=== PATIENT | female | born 1955 ===

== ENCOUNTER 2023-06-10 05:20 | Day surgery (SDC) | payer OTHER | END 2023-06-10 12:30 | disposition home or self-care (01) | LOC: CIR.AMB 05:20 → EDBD 12:45 → CIR.AMB 12:45 | PROVIDERS: ATTEND Otolaryngology Otology & Neurotology | DX: H80.91 Unspecified otosclerosis, right ear (principal); H90.71 Mixed conductive and sensorineural hearing loss, unilateral, right ear, with unrestricted hearing on the contralateral side; Z20.822 Contact with and (suspected) exposure to COVID-19; E11.9 Type 2 diabetes mellitus without complications; E03.9 Hypothyroidism, unspecified ==